=== PATIENT | male | born 1980 | race Caucasian/White ===

== ENCOUNTER 2019-01-16 09:17 | Emergency (ER) | payer SELFPAY ==
[2019-01-16 09:19] VITALS: BP 153/96; PULSE 89; RESP 16; TEMP 36.5; O2SAT 100; BMI 29.1
--- NOTE | 2019-01-16 09:28 | RAD_ITS ---
STUDY: X-RAY - RIGHT SHOULDER REASON FOR EXAM: Male, 38 years old. Pain following a lifting injury. TECHNIQUE: 4 view(s) of the shoulder. COMPARISON: None. FINDINGS: Normal glenohumeral articulation. Normal acromioclavicular joint. Normal acromion. Healed right mid clavicular fracture. Normal humeral head and visualized proximal humerus. The soft tissue structures are unremarkable. Normal visualized pulmonary apex. RAD/Shoulder min 2 Views IMPRESSION: No acute abnormality is seen. There is evidence of a healed mid right clavicular fracture. Electronically Signed: Walter Coelho, at 10:05 EDT , Service support ,
--- NOTE | 2019-01-16 09:28 | RAD_ITS ---
STUDY: X-RAY - UNILATERAL RIBS ( RIGHT ) WITH CHEST REASON FOR EXAM: Male, 38 years old. Anterior rib pain following a lifting injury. TECHNIQUE - RIBS: 4 view(s) of the ribs. TECHNIQUE - CHEST: Single PA view of the chest. COMPARISON: None. FINDINGS - RIBS: Normal visualized ribs without a demonstrated fracture. FINDINGS - CHEST: The lungs are clear and expanded. There is no demonstrated pleural abnormality. Normal size heart. Normal mediastinum and anita. Normal visualized pulmonary arteries. Normal visualized aortic arch and descending thoracic aorta. Normal visualized thoracic spine. Normal visualized ribs, clavicles, and shoulders. There is no demonstrated abnormality of the visualized soft tissue structures of the upper abdomen. RAD/Ribs Uni Min 3V w/PA Chest IMPRESSION: RIBS: Normal x-ray examination of the ribs. CHEST: Normal x-ray examination of the chest. Electronically Signed: Walter Coelho, at 10:05 EDT , Service support ,
[2019-01-16] MEDS: HYDROcodone Bitartrate/Apap 5/325 Tablet PO (09:32)
--- NOTE | 2019-01-16 10:42 | ED.DCSUM_ITS ---
- ER Visit Summary Date of Service: 01/16/19 Chief Complaint: Right shoulder pain History of Present Illness: The patient is a 38 M with right shoulder pain for 4 days. Patient was lifting when he felt a pop in his right shoulder. The pain radiates to his right axilla. Worse with movement. No other complaints. Physical Examination: Afebrile and vital signs unremarkable. Inspection unremarkable except for an old deformity to his distal clavicle on the right. Skin is otherwise unremarkable. Tender to palpation diffusely over the shoulder and in the right axillary region. No crepitus. Neurovascular intact distally. Test Results: X-rays of the right shoulder, right chest/ribs unremarkable. Nothing acute. Emergency Department Course and Treatment: I suspect the patient has a rotator cuff injury. Will treat with rest, ice, anti-inflammatories, muscle relaxers, [place]. Follow-up with orthopedics. Dr. Del Toro is on-call. Treatment Plan: As above Disposition: Discharge Impression: 1. Right shoulder pain This note was generated with [employer] dictation software. It may contain incorrect words, spelling, and punctuation that were not noted in review of the chart prior to signing ED Disposition - Plan for ED Patient: Referrals: Care Physician,No Primary [Primary Care Provider] -
--- NOTE | 2019-01-16 10:45 | ED.DEP ---
ED Disposition - Plan for ED Patient: Instructions: SHOULDER PAIN (Uncertain Cause) Prescriptions: cycloBENZAPRine HCl [Flexeril] 10 mg PO TID PRN #20 tab PRN Reason: Muscle Spasm Prescription Printed Naproxen [Naprosyn] 500 mg PO BID PRN #20 tab Prescription Printed Hydrocodone Bitart/Apap 5-325 [[place] 5MG-325MG] 1 tab PO Q6H PRN PRN 2 Days #8 tab PRN Reason: Pain Prescription Printed Referrals: Reece Del Toro MD [STAFF PHYSICIAN] -
== END 2019-01-16 11:00 | disposition home or self-care (01) ==
LOC: ED 09:52
PROVIDERS: Emergency Provider Emergency Medicine
DX: M25.511 Pain in right shoulder (principal); R07.9 Chest pain, unspecified; Z72.0 Tobacco use
CPT/HCPCS: 71101; 73030; 99283

== ENCOUNTER 2019-02-26 16:35 | Emergency (ER) | payer SELFPAY ==
[2019-02-26 16:37] VITALS: BP 156/91; PULSE 81; RESP 18; TEMP 36.7; O2SAT 99; BMI 29.1
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
[2019-02-26 16:54] VITALS: RESP 16
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
[2019-02-26] MEDS: Morphine 4 MG/ML Syringe IM (17:07)
--- NOTE | 2019-02-26 18:04 | RAD_ITS ---
STUDY: X-RAY - UNILATERAL RIBS ( LEFT ) WITH CHEST REASON FOR EXAM: Male, 38 years old. Injury and rib pain TECHNIQUE - RIBS: 3 view(s) of the ribs. TECHNIQUE - CHEST: Single frontal view of the chest. COMPARISON: 01/16/2019 FINDINGS - RIBS: Acute fracture of left rib 8. Question of acute fracture of left rib 6. FINDINGS - CHEST: The lungs are clear and expanded. There is no demonstrated pleural abnormality. Normal size heart. Normal mediastinum and anita. Normal visualized pulmonary arteries. Normal visualized aortic arch and descending thoracic aorta. Normal visualized thoracic spine. Acute fracture of the left clavicle. Remote deformity of the right clavicle. There is no demonstrated abnormality of the visualized soft tissue structures of the upper abdomen. RAD/Ribs Uni Min 3V w/PA Chest IMPRESSION: RIBS: Acute fracture of left rib 8. Question of acute fracture of left rib 6. CHEST: Acute fracture of the left clavicle. Electronically Signed: Mohsen Eaton MD at 18:46 EDT Tel , Service support ,
[2019-02-26] MEDS: HYDROmorphone 1 MG/ML Syringe SC (18:17)
--- NOTE | 2019-02-26 19:23 | ED.DEP ---
ED Disposition - Plan for ED Patient: Instructions: FRACTURE, Rib, FRACTURE, Clavicle Prescriptions: Oxycodone HCl/Acetaminophen [Percocet 5/325] 1 tab PO Q6H PRN PRN 3 Days #12 tab PRN Reason: Pain Prescription Printed Referrals: Anand Wang DO [STAFF PHYSICIAN] -
[2019-02-26 19:35] VITALS: BP 144/97; PULSE 98; RESP 16; O2SAT 98
== END 2019-02-26 19:36 | disposition home or self-care (01) ==
PROVIDERS: Emergency Provider Emergency Medicine
DX: S22.42XA Multiple fractures of ribs, left side, initial encounter for closed fracture (principal); S42.002A Fracture of unspecified part of left clavicle, initial encounter for closed fracture; S40.212A Abrasion of left shoulder, initial encounter; S50.312A Abrasion of left elbow, initial encounter; S40.812A Abrasion of left upper arm, initial encounter; V86.56XA Driver of dirt bike or motor/cross bike injured in nontraffic accident, initial encounter; Y93.9 Activity, unspecified; Y92.9 Unspecified place or not applicable
CPT/HCPCS: 71101; 73000; 73030; 96372; 99283

== ENCOUNTER → 2019-03-02 | Outpatient (CLI) | payer SELFPAY ==
[2019-03-02 09:56] VITALS: BMI 29.1
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
== END | disposition home or self-care (01) ==
LOC: HPRAD 10:09
PROVIDERS: Referring Provider Physician Assistant; Visit Provider Physician Assistant
DX: S49.92XA Unspecified injury of left shoulder and upper arm, initial encounter (principal)
CPT/HCPCS: 73030

== ENCOUNTER → 2019-03-03 | Outpatient (CLI) | payer SELFPAY ==
[2019-03-02 09:56] VITALS: BMI 29.1
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
== END | disposition home or self-care (01) ==
LOC: CT 08:13
PROVIDERS: Referring Provider Physician Assistant; Visit Provider Physician Assistant
DX: S42.102A Fracture of unspecified part of scapula, left shoulder, initial encounter for closed fracture (principal)
CPT/HCPCS: 73200; 76377

== ENCOUNTER → 2019-04-06 08:08 | Outpatient (CLI) | payer MEDICAID, SELFPAY ==
[2019-03-07 08:42] VITALS: BMI 29.1
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
== END ==
PROVIDERS: Referring Provider Physician Assistant; Visit Provider Physician Assistant
DX: S42.012A Anterior displaced fracture of sternal end of left clavicle, initial encounter for closed fracture (principal); S42.109A Fracture of unspecified part of scapula, unspecified shoulder, initial encounter for closed fracture
CPT/HCPCS: 73010

== ENCOUNTER 2019-05-29 21:43 | Emergency (ER) | payer MEDICAID, SELFPAY ==
[2019-04-06 08:24] VITALS: BMI 29.1
[2019-05-29 21:44] VITALS: BP 168/104; PULSE 71; RESP 18; TEMP 36.8; O2SAT 99; BMI 27.5
--- NOTE | 2019-05-29 22:39 | ED.VISSUMM ---
- ER Visit Summary Date of Service: 05/29/19 Chief Complaint: [Injury to the right ear History of Present Illness: The patient is a 38 M [presents to the emergency department with injury to the right ear that occurred this evening. Patient was on the floor playing with his 1-year-old and cleaning his right ear with a Q-tip. Patient states the 1-year-old accidentally kicked a Q-tip and injured his right ear. Patient states that he started having bleeding from the right ear and decreased hearing. Patient states that hearing is actually improved now. He has no medical history.] Physical Examination: [HEENT-PERRLA, EOMI. Cranial nerves II through XII grossly intact. Mucous membranes moist. No adenopathy. Evaluation of the right ear reveals blood within the canal. Having a difficult time evaluating the eardrum as it is difficult to see. Cardiovascular-regular rate and rhythm without murmur or ectopy Lungs-clear to auscultation, chest wall stable without crepitus or subcu emphysema Abdomen-normoactive bowel sounds, soft, nontender, no rebound or rigidity, no peritoneal signs. Extremities-intact ?4, normal range of motion, normal pulses, atraumatic] Test Results: [None indicated] Emergency Department Course and Treatment: [I discussed case with Dr. Raj Guevara who is on-call for ENT who asked that patient follow-up with his office. At this point I suspect patient may have a ruptured tympanic membrane.] Treatment Plan: [Patient will be given a prescription for [place] for pain.] Disposition: [Discharged home in stable condition.] Impression: [Trauma to right year-suspect rupture of eardrum] This note was generated with [employer] dictation software. It may contain incorrect words, spelling, and punctuation that were not noted in review of the chart prior to signing ED Disposition - Plan for ED Patient: Referrals: Care Physician,No Primary [Primary Care Provider] -
--- NOTE | 2019-05-29 22:41 | DCINST.ED_ITS ---
ED Disposition - Plan for ED Patient: Instructions: RUPTURED TM, Traumatic Prescriptions: Hydrocodone Bitart/Apap 5-325 [[place] 5MG-325MG] 1 tab PO Q4H PRN PRN 2 Days #10 tab PRN Reason: Pain Prescription Printed Referrals: Care Physician,No Primary [Primary Care Provider] - Raj Guevara MD [STAFF PHYSICIAN] - 1-2 Days if not improving
[2019-05-29 22:47] VITALS: RESP 16
== END 2019-05-29 22:48 | disposition home or self-care (01) ==
PROVIDERS: Emergency Provider Emergency Medicine
DX: S09.91XA Unspecified injury of ear, initial encounter (principal); X58.XXXA Exposure to other specified factors, initial encounter; Y93.89 Activity, other specified; Y92.9 Unspecified place or not applicable; Y99.8 Other external cause status; F17.220 Nicotine dependence, chewing tobacco, uncomplicated
CPT/HCPCS: 99282

== ENCOUNTER 2019-08-19 06:44 | Emergency (ER) | payer MEDICAID, SELFPAY ==
[2019-08-19 06:44] VITALS: BP 150/97; PULSE 102; RESP 18; TEMP 37.2; O2SAT 99; BMI 29.0
--- NOTE | 2019-08-19 06:59 | ED.VIS.GEN ---
History of Present Illness Chief Complaint: Cold Sx Informant: Patient Onset: Weeks Context: Sudden Onset Timing: Continuous Quality: Pain Location: Right side of the face Current Severity: Mild Maximum Severity: Severe Worsened by: Leaning forward and palpation Relieved by: Nothing Associated Symptoms: Nasal congestion and pressure Narrative: Patient is a 38-year-old male who has had nasal congestion with rhinorrhea initially that started 3 weeks ago. He reports slight improvement. He states he is now having increased pain right side of the face. He does complain of eye pain with palpation of his upper eyelid. He denies fever, chills or night sweats. Denies headache. Denies photophobia, neck pain or neck stiffness. Has not noted a rash. He also complains of dental pain right upper teeth. He denies cough, shortness of breath or difficulty breathing. He denies chest pain. He denies nausea, vomiting diarrhea. He denies allergy to antibiotic and specifically penicillin. Prior similar symptoms: No Recent Illness/Hospitalization: No - Past Medical History (1) No significant past medical history Status: Acute Past Medical History - Allergies and Home Meds Allergies/Adverse Reactions: Allergies acetaminophen [From Darvocet-N] Allergy (Verified 08/19/19 06:44) Other STOPS MY HEART codeine Allergy (Verified 08/19/19 06:44) Other meperidine [From Demerol] Allergy (Verified 08/19/19 06:44) Other propoxyphene [From Darvocet-N] Allergy (Verified 08/19/19 06:44) Other STOPS MY HEART Primary Care Physician: Care Physician,No Primary [Primary Care Provider] - Prior records reviewed: Yes Past Medical History: None Surgical History: noncontributory, - - Right femur repair Lives: Alone Smoking Status: Never smoker Alcohol: Rare Drugs: None Review of Systems General: Denies: Chills, Fever, Malaise, Sweats Eyes: Reports: - - Pain with palpation on the right side. Denies: Visual changes - bilaterally, Blurred Vision - bilaterally, Diplopia ENT: Reports: Rhinorrhea. Denies: Bilateral ear pain, Sore throat Cardiovascular: Denies: Chest pain, Palpitations Respiratory: Denies: Dyspnea, Cough, Dyspnea on exertion Gastrointestinal: Denies: Abdominal pain, Nausea, Vomiting Musculoskeletal: Denies: Myalgias, Arthralgias, Neck pain, Back pain, Swelling, Extremity Pain Skin: Denies: Rash, Wounds Neurological: Denies: Headache, Weakness, Numbness Allergy: Denies: Swelling of the mouth, Swelling of the tongue Physical Exam Vital Signs/Narrative: Vital Signs Temp Pulse Resp BP Pulse Ox 08/19/19 06:44 98.9 F 102 H 18 150/97 H 99 Inital Vital Signs reviewed: Yes General: Well nourished, Well developed, No Acute Distress Head: Normocephalic, Atraumatic Eyes: Perrl, EOMI. Negative for: Pale conjunctiva, Scleral icterus ENT: Moist mucous membranes, No rhinorrhea, TM's clear, Sinus tenderness - There is tenderness over the right maxillary sinus and right frontal. There is decreased transillumination of light on the right compared to the left. There is no obvious dental pathology. There is no trismus. There is no evidence of facial cellulitis. Neck: Supple, Nontender, No lymphadenopathy, No JVD Cardiovascular: Regular rate, Regular rhythm, No murmurs, Normal S1, Normal S2 Respiratory: No distress, CTA bilaterally, Chest nontender Skin: Normal color, No rash, No Trauma. Negative for: Cyanosis, Diaphoresis, Jaundice Neurological: Alert, Oriented x3, Cranial nerves II-XII grossly intact, Normal Strength, Normal Sensation, Normal Gait Psychological: Normal affect, Normal Mood Diagnostic/Tx/Re-eval - Medical Decision Making Presents with nasal symptoms for 3+ weeks. He has historical as well as physical findings that are consistent with sinusitis. He was treated with Augmentin since he does not have allergy to penicillin. Differential diagnosis is sinusitis, sinus pressure, dental pathology ED Disposition - Plan for ED Patient: Disposition: Home or Assisted Living Diagnosis: Sinusitis, acute maxillary Instructions: SINUSITIS, Abx Tx Prescriptions: Amox/Clavulanate Tablet [Augmentin Tablet] 875 mg PO Q12H #20 tab Transmission Status: Pending to [id number] Referrals: Care Physician,No Primary [Primary Care Provider] - Joey Fay MD [STAFF PHYSICIAN] - 1 Week if not improving Additional Instructions: 1. Take antibiotics until gone. 2. Since she did not have a primary care physician you were referred to Dr. Mk Schultz. 3. If you develop a temperature greater than 100.5, severe headache or any change in vision return to the emergency department.
[2019-08-19] MEDS: Naproxen 250 MG Tablet 500 MG PO (07:16)
[2019-08-19] MEDS: Amox/Clavulanate 875 MG Tablet PO (07:16)
--- NOTE | 2019-08-19 07:18 | ED.RN ---
DISCHARGE INSTRUCTIONS GIVEN TO AND REVIEWED WITH PATIENT, PATIENT DENIES QUESTIONS OR CONCERNS AND VOICES UNDERSTANDING OF DISCHARGE INSTRUCTIONS. PT AMBULATES OUT OF ROOM WITHOUT DIFFICULTY.
== END 2019-08-19 07:19 | disposition home or self-care (01) ==
LOC: ED 07:11
PROVIDERS: Emergency Provider Emergency Medicine
DX: J01.00 Acute maxillary sinusitis, unspecified (principal); K08.89 Other specified disorders of teeth and supporting structures
CPT/HCPCS: 99283